=== PATIENT | female | born 1995 | race Asian ===

== ENCOUNTER 2017-09-16 21:29 | Emergency (ER) | payer OTHER ==
[~2017-09-16] VITALS: Ht 167.6 cm; Wt 49.9 kg
--- NOTE | 2017-09-16 21:32 | NUR ---
Patient to ER bed to gown for evaluation. Side rails up. Report given to Joselyn PHAM.
[2017-09-16 21:36] VITALS: BP_SYST 126
--- NOTE | 2017-09-16 21:40 | NUR ---
Patient to ER with superficial laceration to left 2nd finger aprox 1.5 cm, distal phalange, bleeding controlled. Patient states that she cut her finger when cutting vegetables. No other signs of injury or trauma.
--- NOTE | 2017-09-16 22:04 | NUR ---
ER MD Villa at bedside evaluating the patient
--- NOTE | 2017-09-16 22:51 | NUR ---
Radiology at bedside with portable for xray
[2017-09-16 23:20] VITALS: BP_SYST 122
--- NOTE | 2017-09-16 23:20 | NUR ---
Patient given written and verbal discharge instructions and verbalizes understanding. ER MD Villa discussed with patient the results and treatment provided. Patient in stable condition. ID arm band removed. Patient educated on pain management and to follow up with PMD. Pain Scale 0/10. Opportunity for questions provided and answered.
== END 2017-09-16 23:20 | disposition home or self-care (01) ==
LOC: SED 21:29
DX: S61.211A Laceration without foreign body of left index finger without damage to nail, initial encounter (principal); W26.0XXA Contact with knife, initial encounter; Y93.G3 Activity, cooking and baking; Y92.89 Other specified places as the place of occurrence of the external cause; Y99.8 Other external cause status
CPT/HCPCS: 73140-TC; 99284